=== PATIENT | female | born 1960 | race Caucasian/White ===

== ENCOUNTER 2019-07-06 08:38 | Emergency (ER) | payer SELFPAY ==
[2019-07-06 08:39] VITALS: BP 139/85; PULSE 69; RESP 16; TEMP 36
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
[2019-07-06 09:13] LABS: Absolute Lymphocyte Count 2.05 X10^3/uL (0.83-4.51); Absolute Neutrophil Count 2.5 X10^3/uL (2.0-7.7); Basophil# 0.07 X10^3/uL; Basophil% 1.3 % (0-1); Eosinophil# 0.27 X10^3/uL; Eosinophils% 5.1 % (0-5); Hematocrit 37.5 % (37-47); Lymphocyte # 2.05 X10^3/ul (4.0); Lymphocyte % 38.5 % (19-41); Mean Corpuscular Hgb 29.3 pg (27.0-32.0); Mean Corpuscular Volume 91.5 fL (81-99); Mean Platelet Vol. 9.3 fl (6.2-12.0); Monocyte# 0.41 X10^3/uL; Monocyte% 7.7 % (0-10); NRBC Flagged by Analyzer 0 % (0-5); Platelet Count 341 K/mm3 (150-450); RBC Distribution Width CV 15.1 % (11.6-14.6); RBC Distribution Width SD 50.8 fl (35.1-43.9); White Blood Count 5.3 K/mm3 (4.4-11.0)
[2019-07-06 09:16] LABS: International Normalized Ratio 1.1; Prothrombin Time (Protime)PT. 13.7 SECONDS (11.7-14.9)
[2019-07-06 09:17] LABS: Partial Thromboplast Time 34.6 Seconds (24.1-36.2)
[2019-07-06 09:21] LABS: Internal QC Validated? YES +Cl - CLEAR BKGD; Pregnancy, Serum, hCG Quali. NEGATIVE Negative
[2019-07-06 09:26] LABS: AST(SGOT) 45 U/L (15-37); Alanine Aminotransfer ALT/SGPT 32 U/L (13-56); Albumin, Serum 3.5 g/dL (3.2-5.0); Alkaline Phosphatase 84 U/L (45-117); Anion Gap 5 (5-15); BUN 14 mg/dL (7-18); BUN/Creat Ratio 19.1 RATIO (10-20); Bilirubin, Direct 0.08 mg/dL (0.00-0.30); Calcium,Total 8.7 mg/dL (8.5-10.1); Chloride 110 mmol/L (98-107); Creatinine, Serum 0.73 mg/dL (0.55-1.02); EST Glomerular Filtration Rate 87 mL/min (>60); Est Glom Filt Rate - Afr Amer 105 mL/min (>60); Estimated Creatinine Clearance 74.59 ml/min; Globulin 3.4 g/dL (2.2-4.2); Glucose 127 mg/dL (74-106); Potassium 3.6 mmol/L (3.5-5.1); Protein, Total 6.9 g/dL (6.4-8.2); Sodium Level 140 mmol/L (136-145)
[2019-07-06 09:29] VITALS: BP 157/83; PULSE 66; RESP 16; TEMP 36; O2SAT 94
== END 2019-07-06 09:27 | disposition short-term general hospital (02) ==
PROVIDERS: Emergency Provider Emergency Medicine
DX: S06.0X9A Concussion with loss of consciousness of unspecified duration, initial encounter (principal); R40.2412 Glasgow coma scale score 13-15, at arrival to emergency department; S01.81XA Laceration without foreign body of other part of head, initial encounter; I73.89 Other specified peripheral vascular diseases; M54.2 Cervicalgia; M54.9 Dorsalgia, unspecified; V89.2XXA Person injured in unspecified motor-vehicle accident, traffic, initial encounter; Y93.89 Activity, other specified; F17.200 Nicotine dependence, unspecified, uncomplicated
CPT/HCPCS: 70450; 72125; 74177; 80048; 80076; 80320; 84703; 85025; 85610; 85730; 93005; 99285; J7030; Q9967; G0480

== ENCOUNTER 2021-07-13 07:03 | Emergency (ER) | payer SELFPAY ==
[2021-07-13] VITALS (8 sets, daily range): BP systolic 76–117; BP diastolic 57–70; PULSE 64–70; RESP 13–17; TEMP 36.5; O2SAT 91–96; BMI 20.4
[2021-07-13] MEDS: 0.9% Normal Saline 1,000 ML 999 ML IV ×2 (07:10→07:17)
[2021-07-13] MEDS: fentaNYL 100 MCG/2 ML Ampul 25 MCG IV ×3 (07:13→08:05)
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
--- NOTE | 2021-07-13 07:20 | ED.RN ---
nursing staff in the room at this time annabelle lin christina, lyndsey, and kareen
[2021-07-13] MEDS: 0.9% Normal Saline 1,000 ML 250 ML IV (07:25)
[2021-07-13] MEDS: Diphth,Pertuss(Acell),Tet Vac 0.5 ML Vial IM (07:26)
[2021-07-13 07:28] LABS: Bacteria 0 SEEN /hpf (None Seen); Mucous, Urine 0 SEEN /hpf (<or=2+)
[2021-07-13] MEDS: Cefazolin 1 GM/50 ML BAG IV (07:31)
[2021-07-13 07:32] LABS: Color, Urine Yellow (Yellow); Glucose, Dipstick Normal (Normal); Ketone-Dipstick Negative (Negative); Leukocyte Esterase-Dipstick Negative /ul (Negative); Nitrite-Dipstick Negative (Negative); Occult Blood-Urine 10 /ul (Negative); Protein-Dipstick 15 mg/dl (Negative); Specific Gravity, Urine 1.015 (1.002-1.030); Urine Bilirubin Dipstick Negative (Negative); Urine Clarity Sl. Cloudy (Clear); Urine Urobilinogen Normal (Normal)
--- NOTE | 2021-07-13 07:40 | ED.RN ---
family at the bedside at this time
[2021-07-13 07:41] LABS: Amphetamine Urine VISTA POSITIVE (<1000 ng/mL); Barbiturate Urine VISTA NEGATIVE (< 200 ng/mL); Benzodiazepine Urine VISTA NEGATIVE (< 200 ng/mL); Cocaine Urine VISTA NEGATIVE (< 300 ng/mL); Ecstacy Urine VISTA NEGATIVE (< 500 ng/mL); Methadone Urine VISTA NEGATIVE (< 300 ng/mL); PCP Urine VISTA NEGATIVE (< 25 ng/mL); THC Urine VISTA NEGATIVE (< 50 ng/mL); Vista UDS pH Range 6
[2021-07-13 07:44] LABS: Amorphous Sediment 1+; Red Blood Cells-Urine 0-5 SEEN /hpf (0-5); Squamous Epithelial Cells - UA 0-5 SEEN /hpf (5-10); White Blood Cells 0-5 SEEN /hpf (0-5)
--- NOTE | 2021-07-13 07:44 | ED.RN ---
[facility] and [facility] at this time are not accepting patients. working on acceptance to [facility] called for transfer
[2021-07-13 07:54] LABS: Absolute Lymphocyte Count 2.01 X10^3/uL (0.83-4.51); Absolute Neutrophil Count 3.5 X10^3/uL (2.0-7.7); Basophil# 0.05 X10^3/uL; Basophil% 0.8 % (0-1); Eosinophil# 0.09 X10^3/uL; Eosinophils% 1.5 % (0-5); Hematocrit 23.2 % (37-47); Hemoglobin 7.3 g/dL (12.0-15.0); Lymphocyte # 2.01 X10^3/ul (0.83-4.51); Lymphocyte % 33.6 % (19-41); Mean Corp Hgb Conc 31.5 g/dL (32-36); Mean Corpuscular Hgb 29.6 pg (27.0-32.0); Mean Corpuscular Volume 93.9 fL (81-99); Mean Platelet Vol. 9.1 fl (6.2-12.0); NRBC Flagged by Analyzer 0 % (0-5); Neutrophil # 3.45 X10^3/uL (2.7-7.7); Neutrophil % 57.8 % (47-70); Platelet Count 295 K/mm3 (150-450); RBC Distribution Width CV 15.9 % (11.6-14.6); RBC Distribution Width SD 55.3 fl (35.1-43.9); Red Blood Count 2.47 M/mm3 (4.2-5.4)
[2021-07-13 08:00] LABS: International Normalized Ratio 1.4; Prothrombin Time (Protime)PT. 16.2 SECONDS (11.7-14.9)
[2021-07-13 08:01] LABS: Partial Thromboplast Time 35.2 Seconds (24.1-36.2)
[2021-07-13 08:05] LABS: ALB/GLOB Ratio 0.9 RATIO (0.9-2.4); AST(SGOT) 153 U/L (15-37); Alanine Aminotransfer ALT/SGPT 72 U/L (13-56); Albumin, Serum 2.3 g/dL (3.2-5.0); Alkaline Phosphatase 46 U/L (45-117); Anion Gap 5 (5-15); BUN 14 mg/dL (7-18); Calcium,Total 7.6 mg/dL (8.5-10.1); Chloride 111 mmol/L (98-107); Creatinine, Serum 1.08 mg/dL (0.55-1.02); EST Glomerular Filtration Rate 55 mL/min (>60); Est Glom Filt Rate - Afr Amer 67 mL/min (>60); Estimated Creatinine Clearance 48.71 ml/min; Globulin 2.6 g/dL (2.2-4.2); Glucose 93 mg/dL (74-106); Potassium 3.6 mmol/L (3.5-5.1); Protein, Total 4.9 g/dL (6.4-8.2); Sodium Level 140 mmol/L (136-145); Troponin-I HS 199 pg/mL (3.0-54.0)
[2021-07-13 08:09] LABS: Alcohol, Blood (Medical)-Serum < 3.0 mg/dL
--- NOTE | 2021-07-13 08:29 | ED.RN ---
Attempted to call report to [facility]. Went to a voicemail that was not set up to leave a message.
== END 2021-07-13 08:14 | disposition short-term general hospital (02) ==
PROVIDERS: Emergency Provider Emergency Medicine
DX: S32.402A Unspecified fracture of left acetabulum, initial encounter for closed fracture (principal); S32.511A Fracture of superior rim of right pubis, initial encounter for closed fracture; S06.2X9A Diffuse traumatic brain injury with loss of consciousness of unspecified duration, initial encounter; S01.01XA Laceration without foreign body of scalp, initial encounter; S91.011A Laceration without foreign body, right ankle, initial encounter; S51.812A Laceration without foreign body of left forearm, initial encounter; S80.02XA Contusion of left knee, initial encounter; V43.52XA Car driver injured in collision with other type car in traffic accident, initial encounter; Y93.89 Activity, other specified; Y92.9 Unspecified place or not applicable; Y99.9 Unspecified external cause status; F17.210 Nicotine dependence, cigarettes, uncomplicated
CPT/HCPCS: 12004; 90471; 36415; 51702; 71045; 72170; 80053; 80307; 81001; 82077; 84484; 85025; 85610; 85730; 86850; 86900; 86901; 87426; 90715; 96361; 96365; 96375; 96376; 99285; J7030; A4216

== ENCOUNTER 2021-11-17 02:30 | Emergency (ER) | payer MEDICAID, SELFPAY ==
[2021-11-17 02:31] VITALS: BP 102/75; PULSE 70; RESP 19; TEMP 36.7; O2SAT 97; BMI 18.7
--- NOTE | 2021-11-17 02:44 | EKG12_ITS ---
Test Reason : CP Blood Pressure : / mmHG Vent. Rate : 072 BPM Atrial Rate : 072 BPM P-R Int : 158 ms QRS Dur : 092 ms QT Int : 354 ms P-R-T Axes : 080 143 038 degrees QTc Int : 387 ms Normal sinus rhythm Nonspecific T wave abnormality Abnormal ECG Confirmed by KYLAH VALIENTE, DAVID ([id number]), material expeditor MADIE CAICEDO ([id number]) on 11/21/2021 11:48:17 A M Referred By: PARI Confirmed By:LUCILLE MONTERO MD
--- NOTE | 2021-11-17 02:59 | EDS_ITS ---
HPI History of Present Illness Chief Complaint: Chest Pain Narrative Narrative: Patient with multiple medical problems, chronic pain, on gabapentin, coronary artery disease, acrocyanosis, presents with main complaint of chest pain that she is had intermittently for the past few days. She will it can last 15 minutes. This morning she awoke and states that she was nauseated and has had problems with nausea and vomiting over the last few days also. Yesterday evening she had shortness of breath. She denies any fevers or chills. She called EMS because of the chest pains and all her other symptoms. She denies any stenting of her heart. She is a smoker. No exacerbating or alleviating factors. She states that she had chest pain and shortness of breath that woke her from sleep which is why she called EMS. [facility] Medical History Left foot drop Home Medications azithromycin [Zithromax Z-Armand] See Rx Instructions PO .COMPLEX #6 tab 11/17/21 [Rx Last Taken Unknown] gabapentin 11/17/21 [History Last Taken Unknown] Allergy/AdvReac Type Severity Reaction Status Date / Time No Known Allergies Allergy Verified 07/13/21 07:09 Social History Smoking Status: Current every day smoker tobacco type: cigarettes ROS ROS ED ROS Narrative Constitutional: No fever, no chills. HEENT: No sore throat. No neck pain. No loss of vision. No rhinorrhea. Cardiovascular: Positive, intermittent lasting 15 minutes, periodic episodes of chest pain. No palpitations. No pedal edema. Respiratory: No cough, positive shortness of breath. Abdominal: No abdominal pain. Positive nausea. Occasional vomiting. Genitourinary: No dysuria. No hematuria. Musculoskeletal: Chronic leg pain. History of foot drop. Neurologic: No headaches. No dizziness. No lightheadedness. Skin: No rash. No change in color. Psychiatric: No depression. No anxiety. EXAM Physical Exam Narrative Exam Narrative: Afebrile. Vital signs noted. HEENT: Normocephalic. Atraumatic. Mild cachexia. PERRL, EOMI. Neck soft and supple. No point tenderness or step off. Cardiovascular: Regular rate and rhythm. No murmurs, rubs, or gallops ap preciated. Respiratory: No tachypnea. Lungs clear to auscultation bilaterally. Gastrointestinal: Abdomen soft, nontender, with normoactive bowel sounds. No rebound or guarding. Neurological: Awake. Alert. Nonfocal, nonlateralizing. Skin: No rash. Normal color. No pallor. Musculoskeletal: No pedal edema. Full range of motion extremities. Const Vital Signs: 11/17/21 02:31 11/17/21 02:39 11/17/21 03:07 Temperature 98.1 F Temperature Source Oral Pulse Rate 70 Respiratory Rate 19 H Respiratory Effort Normal Non-Labored Blood Pressure 102/75 Blood Pressure Mean 84 Pulse Ox 97 97 Oxygen Delivery Method Room Air Room Air 11/17/21 05:06 Temperature Temperature Source Pulse Rate 62 Respiratory Rate 17 Respiratory Effort Blood Pressure 117/72 Blood Pressure Mean 87 Pulse Ox 99 Oxygen Delivery Method Room Air Heart Score History: Slightly/Non-Suspicious ECG: Normal Age: >45 - <65 years Risk Factors: 1 or 2 Risk Factors Troponin: </= Normal Limit Score: 2 MDM MDM MDM Narrative Medical decision making narrative: EKG demonstrates normal sinus rhythm at 72 bpm without ectopy or acute ST changes. She requested something for nausea. She was administered ondansetron 4 mg intravenously. Her chest pain work-up is essentially negative. Normal white count of 6.0, hemoglobin stable at 11.5. Sodium slightly low 134, electrolyte panel otherwise unremarkable. BNP normal at 4.8. Initial high-sensitivity troponin normal at 8. Repeat is normal at 7. I do feel that she has been ruled out by biomarkers. Her chest x-ray does show either an atypical pneumonia or groundglass viral pneumonia such as COVID-19. She states that she has been immunized. She was swabbed and is negative. Although she does not have a white count or fever, no real cough, given her shortness of breath, I wrote her prescription for a azithromycin. Smoking cessation was discussed. At this point in time, I feel she can be discharged safely home with follow-up. Return instructions to the emergency department were reviewed. Disposition is discharged home in stable condition. Lab Data Attestation: I reviewed the patient's lab results. Labs: Laboratory Results - last 24 hr 11/17/21 11/17/21 11/17/21 03:00 03:00 03:00 WBC 6.0 RBC 3.78 L Hgb 11.5 L Hct 35.2 L MCV 93.1 MCH 30.4 MCHC 32.7 RDW Std Deviation 51.4 H RDW Coeff of Roderick 14.9 H Plt Count 432 MPV 8.8 Immature Gran % (Auto) 0.200 Neut % (Auto) 37.2 L Lymph % (Auto) 53.2 H [place] % (Auto) 6.3 Eos % (Auto) 1.8 Baso % (Auto) 1.3 H Absolute Neuts (auto) 2.2 Absolute Lymphs (auto) 3.20 Nucleated RBC % 0 Sodium 134 L Potassium 4.2 Chloride 102 Carbon Dioxide 27.0 Anion Gap 5 BUN 11 Creatinine 0.64 Estim Creat Clear Calc 70.83 Est GFR (MDRD) Af Amer 122 Est GFR (MDRD) Non-Af 101 BUN/Creatinine Ratio 17.3 Glucose 88 Calcium 9.0 Troponin I High Sens 8 B-Natriuretic Peptide 4.8 Lipase 11/17/21 05:00 WBC RBC Hgb Hct MCV MCH MCHC RDW Std Deviation RDW Coeff of Roderick Plt Count MPV Immature Gran % (Auto) Neut % (Auto) Lymph % (Auto) [place] % (Auto) Eos % (Auto) Baso % (Auto) Absolute Neuts (auto) Absolute Lymphs (auto) Nucleated RBC % Sodium Potassium Chloride Carbon Dioxide Anion Gap BUN Creatinine Estim Creat Clear Calc Est GFR (MDRD) Af Amer Est GFR (MDRD) Non-Af BUN/Creatinine Ratio Glucose Calcium Troponin I High Sens 7 B-Natriuretic Peptide Lipase 124 Radiography Diagnostic Testing: Clinical Impression(s) from Imaging Studies Chest X-Ray 11/17/21 03:05 IMPRESSION: Ill-defined subpleural groundglass opacities are seen more prominent in the lung bases , may represent atypical pneumonia or viral pneumonia (COVID-19 ?). Electronically Signed: Mariella Swartz MD at 4:29 EST , Discharge Plan Triage Chief Complaint: Chest Pain ED Provider: Misael Betancourt Dx/Rx/DC Orders Clinical Impression: Chest pain, Shortness of breath, Nausea, Atypical pneumonia Instructions: ED Chest Pain, Uncertain Cause, ED Dyspnea, ED Pneumonia (Adult) Prescriptions: New azithromycin [Zithromax Z-Armand] 250 mg tablet See Rx Instructions PO .COMPLEX Qty: 6 RF: 0 No Action gabapentin 300 mg capsule RF: 0 Primary Care Provider: Brianna Tee SALON SALES CONSULTANT Referrals: Brianna Tee SALON SALES CONSULTANT, SALON SALES CONSULTANT-C [Primary Care Provider] - 3-5 Days if not improving Disposition Disposition: Home, Self Care
[2021-11-17] MEDS: Aspirin 81 MG TAB.CHEW 324 MG PO (03:00)
--- NOTE | 2021-11-17 03:05 | RAD_ITS ---
STUDY: X-RAY CHEST REASON FOR EXAM: Female, 61 years old. chest pain TECHNIQUE: COMPARISON: None. FINDINGS: Ill-defined subpleural groundglass opacities are seen more prominent in the lung bases , may represent atypical pneumonia or viral pneumonia (COVID-19 ?). There is a calcified granuloma in the left lung measuring approximately 1.7 cm is stable since the previous study. Normal size heart. Normal mediastinum and deysi. Normal visualized pulmonary arteries. Normal visualized aortic arch and descending thoracic aorta. Normal visualized thoracic spine. Healing fractures on the anterior aspect of the right third, fourth, fifth, sixth, seventh ribs. There is no demonstrated abnormality of the visualized soft tissue structures of the upper abdomen. RAD/Chest 1 View (Portable) IMPRESSION: Ill-defined subpleural groundglass opacities are seen more prominent in the lung bases , may represent atypical pneumonia or viral pneumonia (COVID-19 ?). Electronically Signed: Mariella Swartz MD at 4:29 EST ,
[2021-11-17 03:06] LABS: Absolute Neutrophil Count 2.2 X10^3/uL (2.0-7.7); Basophil# 0.08 X10^3/uL; Basophil% 1.3 % (0-1); Eosinophil# 0.11 X10^3/uL; Eosinophils% 1.8 % (0-5); Hematocrit 35.2 % (37-47); Hemoglobin 11.5 g/dL (12.0-15.0); Lymphocyte % 53.2 % (19-41); Mean Corp Hgb Conc 32.7 g/dL (32-36); Mean Corpuscular Hgb 30.4 pg (27.0-32.0); Mean Corpuscular Volume 93.1 fL (81-99); Mean Platelet Vol. 8.8 fl (6.2-12.0); Monocyte# 0.38 X10^3/uL; Monocyte% 6.3 % (0-10); NRBC Flagged by Analyzer 0 % (0-5); Neutrophil # 2.24 X10^3/uL (2.7-7.7); Neutrophil % 37.2 % (47-70); Platelet Count 432 K/mm3 (150-450); RBC Distribution Width CV 14.9 % (11.6-14.6); RBC Distribution Width SD 51.4 fl (35.1-43.9); Red Blood Count 3.78 M/mm3 (4.2-5.4)
[2021-11-17 03:07] VITALS: O2SAT 97
[2021-11-17] MEDS: Ondansetron 4 MG/2 ML Vial IV (03:09)
[2021-11-17 03:21] LABS: BNP,B-Type NATRIURETIC PEPTIDE 4.8 pg/mL (0-100)
[2021-11-17 03:24] LABS: Anion Gap 5 (5-15); BUN 11 mg/dL (7-18); BUN/Creat Ratio 17.3 RATIO (10-20); Chloride 102 mmol/L (98-107); Creatinine, Serum 0.64 mg/dL (0.55-1.02); EST Glomerular Filtration Rate 101 mL/min (>60); Est Glom Filt Rate - Afr Amer 122 mL/min (>60); Estimated Creatinine Clearance 70.83 ml/min; Glucose 88 mg/dL (74-106); Potassium 4.2 mmol/L (3.5-5.1); Sodium Level 134 mmol/L (136-145); Troponin-I HS 8 pg/mL (3.0-54.0)
[2021-11-17 05:06] VITALS: BP 117/72; PULSE 62; RESP 17; O2SAT 99
[2021-11-17 05:31] LABS: Lipase 124 U/L (73-393); Troponin-I HS 7 pg/mL (3.0-54.0)
[2021-11-17 05:57] VITALS: BP 114/75; PULSE 59; RESP 18; O2SAT 99
== END 2021-11-17 05:58 | disposition home or self-care (01) ==
PROVIDERS: Emergency Provider Emergency Medicine; PCP Nurse Practitioner; Visit Provider Emergency Medicine
DX: J18.8 Other pneumonia, unspecified organism (principal); R07.9 Chest pain, unspecified; R06.02 Shortness of breath; F17.210 Nicotine dependence, cigarettes, uncomplicated
CPT/HCPCS: 71045; 80048; 83690; 83880; 84484; 85025; 87426; 93005; 96374; 99285; A4216; J2405